=== PATIENT | female | born 1990 | race Caucasian/White ===

== ENCOUNTER → 2016-06-03 | Outpatient (CLI) | payer BC, OTHER | END | disposition home or self-care (01) | LOC: C.PAPS 16:42 | PROVIDERS: ATTEND Obstetrics & Gynecology | DX: R87.612 Low grade squamous intraepithelial lesion on cytologic smear of cervix (LGSIL) (principal) ==

== ENCOUNTER → 2016-06-03 | Outpatient (CLI) | payer BC, OTHER | END | disposition home or self-care (01) | LOC: C.PATHSPEC 07:54 | PROVIDERS: ATTEND Obstetrics & Gynecology | DX: N87.0 Mild cervical dysplasia (principal) ==

== ENCOUNTER → 2016-06-26 | Outpatient (CLI) | payer BC, OTHER | END | disposition home or self-care (01) | LOC: C.PATHSPEC 15:51 | PROVIDERS: ATTEND Obstetrics & Gynecology | DX: R87.613 High grade squamous intraepithelial lesion on cytologic smear of cervix (HGSIL) (principal) ==

== ENCOUNTER → 2016-11-14 | Outpatient (CLI) | payer OTHER | END | disposition home or self-care (01) | LOC: C.LAB 14:41 | PROVIDERS: ATTEND Student in an Organized Health Care Education/Training Program | DX: I49.8 Other specified cardiac arrhythmias (principal); R06.02 Shortness of breath; E03.9 Hypothyroidism, unspecified ==

== ENCOUNTER → 2016-12-24 | Outpatient (CLI) | payer OTHER | END | disposition home or self-care (01) | LOC: C.PAPS 09:34 | PROVIDERS: ATTEND Obstetrics & Gynecology | DX: Z12.4 Encounter for screening for malignant neoplasm of cervix (principal); R87.610 Atypical squamous cells of undetermined significance on cytologic smear of cervix (ASC-US) ==

== ENCOUNTER → 2016-12-24 | Outpatient (CLI) | payer OTHER | END | disposition home or self-care (01) | LOC: C.PATH 15:47 | PROVIDERS: ATTEND Obstetrics & Gynecology | DX: D06.9 Carcinoma in situ of cervix, unspecified (principal) ==

== ENCOUNTER → 2017-05-06 | Outpatient (CLI) | payer OTHER | END | disposition home or self-care (01) | LOC: C.PATHSPEC 17:38 | PROVIDERS: ATTEND Obstetrics & Gynecology | DX: N72 Inflammatory disease of cervix uteri (principal); N87.0 Mild cervical dysplasia ==